=== PATIENT | male | born 1980 | race American Indian/Alaskan Native ===

== ENCOUNTER 2017-10-24 05:25 | Emergency (ER) | payer OTHER ==
[~2017-10-24] VITALS: Ht 167.6 cm; Wt 77.1 kg
[2017-10-24] MEDS ORDERED: ZOFRAN ODT4 MG PO (09:15)
== END 2017-10-24 09:23 | disposition home or self-care (01) ==
LOC: ED 05:25
DX: K52.9 Noninfective gastroenteritis and colitis, unspecified (principal); F17.200 Nicotine dependence, unspecified, uncomplicated; Z88.5 Allergy status to narcotic agent
CPT/HCPCS: 80053; 81001; 83690; 85025; 85610; 85730; 87045; 87046; 87077; 87493; 96361; 96374; 99283; J2405; J7030

== ENCOUNTER 2018-11-28 16:46 | Inpatient (IN) | payer OTHER ==
[~2018-11-28] VITALS: Ht 167.6 cm; Wt 77.1 kg
[~2018-11-28 16:46] MED LIST: ZOFRAN ODT4 MG PO
[2018-11-28] MEDS ORDERED: ACETAMINOPHEN325 M1 PO (17:02)
--- NOTE | 2018-11-28 20:29 | NUR ---
PT ARRIVES TO CCU ROOM 130 ADMITTED AFTER 5 DAYS COUGH/CONGESTION AND RECENT FEVERS AND VOMITTING, ADMITTED FOR PNEUMONIA, INFLUENZA POSITIVE. UP FROM GURNEY TO VOID INTO BATHROOM AMOUNT UNMEASURED THEN INTO THE BED. ADMISSION ASSESSMENT COMPLETED. PT STATES HE IS HUNGRY AND REQUESTING TO EAT, WILL START WITH SOME JELLO AND SEE HOW HE TOLERATES IT, LAST TIME HE VOMITTED WAS THIS AFTERNOON. IS FINISHING A 1L BOLUS OF LR HUNG IN ER FOR A TOTAL INFUSED OF 2L.
--- NOTE | 2018-11-28 21:47 | NUR ---
PT UP IN BED WATCHING TV, TOLERATED JELLO AND SOUP AND CRACKERS, NO NAUSEA, NO C/O PAIN. RR 28-30 WILL MONITOR, ON 2L/O2 WITH SPO2 95%. OCC COUGHING HEARD.
--- NOTE | 2018-11-28 22:54 | NUR ---
PT IS LYING IN BED WATCHING TV, DENIES NAUSEA OR PAIN AT THIS TIME. OVERALL RESP RATE IS LOWER, NOW 16-20, SPO2 94% ON 2L/O2. PT HAVING OCC COUGH, STATES HE WILL CALL IF HE WANTS A COUGH SUPPRESSANT.
--- NOTE | 2018-11-29 00:26 | NUR ---
AWAKENS FOR ASSESSMENT, NO COMPLAINTS, BACK TO SLEEP. HR 80 WITH RR 18-14 AND SPO2 96% ON 2L
--- NOTE | 2018-11-29 01:58 | NUR ---
PT C/O COUGH KEEPING HIM AWAKE, TESSALON PERLE GIVEN.
--- NOTE | 2018-11-29 02:57 | NUR ---
LESS COUGHING NOTED SINCE TESSALON PERLES GIVEN. RESP RATE 20 AND SPO2 95% ON 2L/O2.
--- NOTE | 2018-11-29 04:13 | NUR ---
AWAKENS FOR ASSESSMENT, DENIES NEEDS AT THIS TIME, BACK TO SLEEP.
--- NOTE | 2018-11-29 06:30 | NUR ---
UP TO VOID AND HAVE BOWEL MOVEMENT. STEADY ON FEET. DENIES NEED, BACK TO BED AND ORDERING BREAKFAST. STATES HE FEELS LIKE BREATHING IS BETTER THIS MORNING.
--- NOTE | 2018-11-29 08:00 | NUR ---
TO BR TO HAVE LIQUID STOOL. THIS IS THE SECOND LIQUID STOOL PATIENT HAS HAD THIS AM. ASSESSMENT DONE. TALKED WITH PATIENT ABOUT PLAN OF CARE FOR DAY, IS UNDERSTANDING.
--- NOTE | 2018-11-29 08:15 | NUR ---
BDE LINEN CHANGED WHILE UP TO BR. BACK TO BED, DENIES SHORTNESS OF BREATH WITH EXERTION. C/O SLIGHT SORE THROAT.
--- NOTE | 2018-11-29 08:30 | NUR ---
TOOK BREAKFAST POOR.
--- NOTE | 2018-11-29 09:15 | NUR ---
DR. ANDRES HERE TO SEE PATIENT, ORDERS RECIEVED.
[2018-11-29] MEDS ORDERED: ZITHROMAX250 MG PO (09:35)
--- NOTE | 2018-11-29 09:39 | NUR ---
PATIENT TAKING AZITHROMYCIN (Z-PACK) PRIOR TO ARRIVING TO THE HOSPITAL.
--- NOTE | 2018-11-29 10:20 | NUR ---
RECIEVED DUONEB PER RT. PATIENT STATES THE TREATMENT HELP, FEELS BETTER NOW. HAS BEEN USING URINAL WITHOUT DIFFICULTY.
--- NOTE | 2018-11-29 11:36 | NUR ---
WATCHING TV, FRIEND IS AT BEDSIDE. TUSSLON LILLI 200 MG AND ROBUTUSSION 10 ML GIVEN FO RCOUGH AND THROAT IRRITATION. HAS PRODUCTIVE COUGH OF YELLOWISH SPUTUM. O2 REMAIANS OFF, O2 SAT 89 TO 90. PATIENT IS ASKING FOR 02 TO REMAIN OFF AT THIS TIME.
--- NOTE | 2018-11-29 12:30 | NUR ---
SITTING UP AT BEDSIDE TO EAT, ASSESSMENT DONE, DENIES PROBLEMS.
--- NOTE | 2018-11-29 16:00 | NUR ---
ASSESSMENT DONE. STATES HE IS FEELING BETTER. NEB TREATMENT GIVEN BY RT EARLIER. DENIES SHORTNESS OF BREATH WITH EXERTION, HOWEVER WHEN PATIENT IS UP AMBULATING, DOES HAVE INCREASED WORK OF BREATHING.
--- NOTE | 2018-11-29 18:15 | NUR ---
TOOK DINNER WELL, IS WITHOUT C/O. REMAINS ON RA, AND IVF. CONTINUE WITH PRODUCTIVE COUGH.
--- NOTE | 2018-11-29 19:49 | NUR ---
RT IN TO SEE PT. REPORT RECEIVED FROM DAY SHIFT.
--- NOTE | 2018-11-29 20:10 | NUR ---
ASSESSMENT DONE, PT GIVEN SNACK OF SOUP AND CRACKERS.
--- NOTE | 2018-11-29 21:15 | NUR ---
TAMIFLU GIVEN, PT ALSO REQUESTS MEDS FOR COUGH. TESSALON PERELES AND ROBITUSSIN COUGH SYRUP GIVEN.
--- NOTE | 2018-11-29 23:30 | NUR ---
PT AWAKE, WATCHING TV IN BED NO REQUESTS OR COMPLAINTS AT THIS TIME.
--- NOTE | 2018-11-30 00:54 | NUR ---
ASSESSMENT DONE, AWAKE IN BED WATCHING TV, NO NEEDS AT THIS TIME.
--- NOTE | 2018-11-30 02:34 | NUR ---
PT RESTING, RESP EVEN UNLABORED, RR 18 SPO2 94% HR 60'S.
[2018-11-30] MEDS ORDERED: TAMIFLU75 MG PO (07:58)
[2018-11-30] MEDS ORDERED: PROAIR RESPICL90 MCG INH (07:59)
[2018-11-30] MEDS ORDERED: SPACE CHAMBER1 EACH INH (08:00)
[2018-11-30] MEDS ORDERED: BENZONATATE100 MG PO (08:00)
[2018-11-30] MEDS ORDERED: ROBAFEN-DM SYR118 ML PO (08:02)
--- NOTE | 2018-11-30 12:11 | NUR ---
this rn has reviewed all student nurses charting and documentation, it is accurate.
== END 2018-11-30 09:55 | disposition home or self-care (01) | DRG 195 ==
LOC: ED 16:46 → CCU 19:28
PROVIDERS: ADMIT Internal Medicine
DX: J10.01 Influenza due to other identified influenza virus with the same other identified influenza virus pneumonia (principal); R09.02 Hypoxemia; D69.6 Thrombocytopenia, unspecified; Z88.5 Allergy status to narcotic agent; Z87.891 Personal history of nicotine dependence; Z94.5 Skin transplant status; Z87.828 Personal history of other (healed) physical injury and trauma
CPT/HCPCS: 36415; 71045; 80053; 83605; 85025; 87502; 94640; 94664; 94667; 96361; 96365; 96375; 99285-25; J0696; J2405; J2930; J7030; J7120